=== PATIENT | male | born 1995 | race Caucasian/White ===

== ENCOUNTER 2017-07-08 09:51 | Emergency (ER) | payer OTHER ==
[~2017-07-08] VITALS: Ht 180.3 cm; Wt 107.0 kg
[~2017-07-08 09:51] MED LIST: CETI10 PO; EPIP0.3I IM
[2017-07-08 10:07] VITALS: BP 145/81; PULSE 82; RESP 18; TEMP 98.3; O2SAT 96
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
[2017-07-08] MEDS ORDERED: CYCL5TAB PO (12:39)
[2017-07-08] MEDS ORDERED: ARTHTAB2 PO (12:39)
== END 2017-07-08 12:57 | disposition home or self-care (01) ==
LOC: PHED 09:51
DX: S16.1XXA Strain of muscle, fascia and tendon at neck level, initial encounter (principal); S29.012A Strain of muscle and tendon of back wall of thorax, initial encounter; V49.40XA Driver injured in collision with unspecified motor vehicles in traffic accident, initial encounter
CPT/HCPCS: 72020; 72072; 99284